=== PATIENT | female | born 1990 | race Caucasian/White ===

== ENCOUNTER 2016-06-21 16:28 | Inpatient (IN) | payer OTHER, BC ==
[2016-06-21] VITALS (8 sets, daily range): BP systolic 109–136; BP diastolic 61–80
[~2016-06-21] VITALS: Ht 162.6 cm; Wt 80.0 kg
[~2016-06-21 16:28] MED LIST: ENDOCET 5-3251 EACH PO; IBUPROFEN800 MG PO; NOHOMEMEDS; PRENATAL TABLE1 EACH PO
[2016-06-21 19:04] LABS: AMPHETAMINES QUANT VALUE 0 NG/ML; BARBITUATES QUANT VALUE 0 NG/ML; BENZODIAZEPINES QUANT VALUE 0 NG/ML; BENZODIAZEPINES, URINE SCREEN Negative (200 ng/mL); MARIJUANA QUANT VALUE 0 NG/ML; OPIATES QUANTITATIVE VALUE 0 NG/ML; PHENCYCLIDINE QUANT VALUE 0 NG/ML
[2016-06-21 21:36] LABS: EOSINOPHIL (%) 0.1 % (0-5); HEMATOCRIT 31.7 % (36.0-46.0); IMMATURE GRANULOCYTE (%) 0.5 % (0.0-0.7); IMMATURE GRANULOCYTE COUNT 0.1 K/uL; INSTRUMENT ABS NEUTROPHIL CT 12.8 K/uL; MCH 24.3 PG (29.0-34.0); MCHC 30.3 G/DL (30.0-36.0); MCV 80.3 FL (83-99); MEAN PLAT.VOLUME 9.9 uM^3 (9.5-12.4); MONOCYTE (%) 3.5 % (3-12); MONOCYTE COUNT 0.5 K/uL (0-0.8); NEUTROPHIL (%) 88.9 % (45-76); NEUTROPHIL COUNT 12.8 K/uL (1.8-6.4); PLATELET COUNT 217 K/uL (156-360); RBC DIS.WIDTH-CV 15.8 % (11.8-14.6); RBC DIS.WIDTH-SD 46.3 % (39-53); RED BLOOD COUNT 3.95 M/uL (3.80-5.20); WHITE BLOOD COUNT 14.4 K/uL (4.1-10.2)
[2016-06-22 07:31] LABS: EOSINOPHIL (%) 0.4 % (0-5); HEMATOCRIT 28.7 % (36.0-46.0); IMMATURE GRANULOCYTE (%) 0.5 % (0.0-0.7); IMMATURE GRANULOCYTE COUNT 0.1 K/uL; INSTRUMENT ABS NEUTROPHIL CT 7.9 K/uL; LYMPHOCYTE COUNT 1.6 K/uL (1.0-2.8); MCH 24.5 PG (29.0-34.0); MCV 79.1 FL (83-99); MEAN PLAT.VOLUME 9.1 uM^3 (9.5-12.4); MONOCYTE (%) 6.6 % (3-12); MONOCYTE COUNT 0.7 K/uL (0-0.8); NEUTROPHIL (%) 76.6 % (45-76); NEUTROPHIL COUNT 7.9 K/uL (1.8-6.4); PLATELET COUNT 165 K/uL (156-360); RBC DIS.WIDTH-CV 15.9 % (11.8-14.6); RBC DIS.WIDTH-SD 46.1 % (39-53); RED BLOOD COUNT 3.63 M/uL (3.80-5.20); WHITE BLOOD COUNT 10.4 K/uL (4.1-10.2)
[2016-06-22 07:34] VITALS: BP 126/75
[2016-06-22 15:02] VITALS: BP 117/74
[2016-06-22] MEDS ORDERED: IBUPROFEN800 MG PO (19:32)
[2016-06-22] MEDS ORDERED: DOCUSATE SODIU100 MG PO (19:33)
[2016-06-22] MEDS ORDERED: FERROCITE324 MG PO (19:33)
== END 2016-06-22 20:40 | disposition home or self-care (01) | DRG 775 ==
LOC: LDRP-OP 16:28 → 2WEST 16:29 → LDRP-OP 07-31 15:45
PROVIDERS: Advanced Practice Midwife
DX: O99.02 Anemia complicating childbirth (principal); D62 Acute posthemorrhagic anemia; O99.214 Obesity complicating childbirth; E66.3 Overweight; Z68.29 Body mass index [BMI] 29.0-29.9, adult; Z3A.38 38 weeks gestation of pregnancy; Z37.0 Single live birth
CPT/HCPCS: 80306 90; 85025

== ENCOUNTER 2017-09-10 22:54 | Emergency (ER) | payer OTHER, BC ==
[~2017-09-10] VITALS: Ht 162.6 cm; Wt 80.5 kg
[~2017-09-10 22:54] MED LIST changes: +DOCUSATE SODIU100 MG PO; +FERROCITE324 MG PO
[2017-09-11 02:09] VITALS: BP 118/78
== END 2017-09-11 02:10 | disposition home or self-care (01) ==
LOC: EME 22:54
PROC: 0HQ1XZZ Repair Face Skin, External Approach (ICD-10-PCS; principal; 2017-09-10)
DX: S01.81XA Laceration without foreign body of other part of head, initial encounter (principal); V40.0XXA Car driver injured in collision with pedestrian or animal in nontraffic accident, initial encounter
CPT/HCPCS: 99281; 99283